=== PATIENT | male | born 1950 | race Caucasian/White ===

== ENCOUNTER 2019-04-08 08:43 | Day surgery (SDC) | payer MEDICARE, BC ==
--- NOTE | 2019-04-08 05:45 | History and Physical - [place] ---
CHIEF COMPLAINT/HISTORY OF CHIEF COMPLAINT: This patient presents with a history of an intractable post lumbar laminectomy syndrome. Due to the failure of therapies, a spinal cord stimulator trial was conducted on 03/07/19 with 75% pain control. Due to the failure of therapy and the success of the trial, he is here for implantation of a permanent system. PAST MEDICAL HISTORY: Chronic obstructive pulmonary disease, asthmatic bronchitis, hypertension, bladder dysfunction, diverticular disease, depression, and difficulty sleeping. PAST SURGICAL HISTORY: Multiple orthopedic surgeries. MEDICATIONS ON ADMISSION: List to be provided. ALLERGIES: None given. FAMILY/PSYCHOSOCIAL HISTORY: Social history - Smoking and caffeine. Family history - Coronary artery disease, hypertension, and cancer. SYSTEMS REVIEW: The patient is appropriate in no acute distress. The remainder of the systems review is positive for glasses, breathing difficulties, and degenerative arthritis. PHYSICAL EXAMINATION: Height is 5'10", weight is 230. No vitals. HEENT: Within normal limits. LUNGS: Lung sounds coarse and bronchitic. HEART: Rapid. MUSCULOSKELETAL: Primary pain pattern low back with a bilateral lower extremity extension. Mild motor and sensory abnormalities in both legs. Assistive device required for ambulation. NEUROLOGIC: Cranial nerves are intact. IMPRESSION: POST LUMBAR LAMINECTOMY SYNDROME, ICD-10 CODE M96.1 WITH LUMBAR RADICULOPATHY, ICD-10 CODE M54.16 AND M54.17. PLAN: The patient is here for implantation of a permanent spinal cord stimulator after the failure of therapy and the success of the trial. The procedure will be considered outpatient although an overnight stay will be evaluated. JOB NUMBER: [id number] MTDD
[2019-04-08] MEDS ORDERED: LIDOCAINE 2% MDV (20MG/ML) 20ML VIAL IV ONE (08:44)
[2019-04-08] MEDS ORDERED: MIDAZOLAM HCL 2MG/2ML VIAL IV ONE (08:44)
[2019-04-08] MEDS ORDERED: PROPOFOL 10 MG/ML VIAL IV ONE (08:44)
[2019-04-08] MEDS ORDERED: FENTANYL PF 100MCG/2ML VIAL IV ONE (08:44)
[2019-04-08] MEDS ORDERED: CEFAZOLIN 1G VIAL IVP ONE (08:44)
[2019-04-08] MEDS ORDERED: 0.9 % SODIUM CHLORIDE 10 ML VIAL IVP ONE (08:44)
[2019-04-08] MEDS: RINGERS SOLUTION,LACTATED 1,000 ML IV ONE ×2 (09:30→12:06)
[2019-04-08] MEDS: METOCLOPRAMIDE 10 MG TABLET PO ONE (09:33)
[2019-04-08] MEDS: FAMOTIDINE 20MG TABLET PO ONE (09:33)
[2019-04-08] MEDS: MECLIZINE 25 MG TABLET PO ONE (09:33)
[2019-04-08] MEDS: ACETAMINOPHEN 1,000 MG/100 ML BTL IVPB ONE (09:33)
[2019-04-08] MEDS: CEFAZOLIN 2 Gram 2 GM/50 ML BAG IVPB ONE (11:10)
[2019-04-08] MEDS: LIDOCAINE 1% W/EPI 1:100,000 MDV 20 ML VIAL SQ ONE (12:10)
[2019-04-08] MEDS: BUPIVACAINE 0.5% W/EPI MPF 30 ML VIAL SQ ONE (12:10)
--- NOTE | 2019-04-09 20:48 | RADIOLOGY REPORT ---
EXAM: SPINE, 1 VIEW HISTORY: SPINAL CORD STIMULATOR IMPLANT. TECHNIQUE: Single AP supine view of the lower two-thirds of the thoracic and entire lumbar spine obtained. COMPARISON: Intraoperative radiographs dated 04/08/2019. FINDINGS: A dual-lead intraspinal stimulator is in place. This appears to enter the spinal canal near the thoracolumbar junction. Lead tips are at the T5-T6 level. The extraspinal portions of the leads extend rightward to the right flank region, where there is connection to a stimulator generator. There are degenerative changes scattered throughout the visualized spine, mild to moderate in degree, associated with levoconvex lumbar scoliosis. No lytic or blastic bone lesion. IMPRESSION: DUAL-LEAD INTRASPINAL STIMULATOR IN PLACE, DETAILED ABOVE. JOB NUMBER: [id number] MTDD
--- NOTE | 2019-04-10 15:01 | Operative Note ---
DATE OF SURGERY: 04/08/2019 PREOPERATIVE DIAGNOSIS: Post lumbar laminectomy syndrome, ICD10 code M96.1 with radiculopathy, ICD10 code M54.16 and M54.17. OPERATION: 1. Fluoroscopic-guided epidural access left T1-12, placement of spinal cord stimulator lead 1 [employer] Infinion 16, 6 electrodes positioned left T7. 2. Fluoroscopic-guided epidural access left T12-L1, placement of spinal cord stimulator lead 2 [employer] Infinion 16, 6 electrodes positioned right T7. 3. Complex programming of lead 1 over 20 minutes followed by complex programming of lead 2 over 20 minutes. 4. Incision, subcutaneous dissection, and anchoring of lead 1 and lead 2 to supraspinous fascia with a [employer] locking anchor. 5. Incision, subcutaneous dissection, and creation of subcutaneous pouch at right flank at site picked by patient for generator, [employer] programmable rechargeable WaveWriter. 6. Tunneling between lead pouch and generator pouch, placement of external portion of each lead into generator pouch, each lead interfaced with generator. 7. Dermabond closure approximating each wound. 8. Complex programming internal generator home use 2 stimulators 20 minutes. ANESTHESIA: Sedation with intravenous medication. ANESTHESIA PROVIDER: Kody Brown INDICATION: This patient presents with a history of intractable lumbar radiculopathy post laminectomy in source. Due to the failure of therapy, a spinal cord stimulator trial was conducted with 75% to 85% pain control. Due to the failure of all therapies and the success of the stimulator trial, the patient presents for implantation of a permanent system. PROCEDURE: Intravenous line, vital sign monitoring, IV sedation. Patient positioned prone. Sterile prep, sterile technique. Imaging for guidance. Local for infiltration. From the left, the epidural interspace at 11-12 and 12-1 were both marked, infiltrated with local. Then using 2 separate curved access Epimed needles with loss of resistance, the space was accessed. At 11-12, spinal cord stimulator lead 1, a [employer] Infinion 16, 6 electrodes positioned left of the midline T7. With the access at 12-1, same technique, spinal cord stimulator lead 2, [employer] Infinion 16, 6 electrodes positioned right at T7. Each access was atraumatic. No blood, no CSF. Each lead was navigated to T7 successfully. With the patient awake, complex programming of each lead over 20 minutes performed establishing stimulation pain control to all the appropriate areas. He was given the option to implant and continue to program or remove. He opted to implant. The question was repeated with the same response. The skin above and below each needle was infiltrated. Incision was made and subcutaneous dissection was conducted to supraspinous fascia. Each of the leads was then anchored to the supraspinous fascia with a [employer] locking anchor and nonabsorbable suture. At the right flank, a site picked by the patient for the generator, skin infiltrated, incision made, and subcutaneous dissection was conducted to form a pouch of suitable size and depth for the generator. Antibiotic irrigation and Bovie for hemostasis at both sites. A tunneling tool was used to carry the leads in the generator pouch, and then each lead was interfaced to the generator. The generator and its connections to the leads were placed into the pouch. The leads were placed into their own pouch, and then both incisions were closed using Stratafix suture, 2-0 fascia, and 3-0 skin. Dermabond closure was used to approximate the edges of both wounds. He was transported to the recovery room stable. There were no side effects from the procedure or sedation. He had full functionality of extremities. When awake and alert in the recovery room, complex programming of the 2 leads and the internal generator performed over 20 minutes reestablishing stimulation and pain control to all the appropriate areas. He was instructed on use of the system, provided with information on error messaging, and then prepared for discharge. DISCHARGE INSTRUCTIONS: 1. The sites to remain clean and dry although the Dermabond will allow showering. No sitting in water. 2. Standard medications resumed including the antibiotic Levaquin 500 mg once a day for 14 days. 3. The office will contact the patient in 12-14 days to set up a time in 7-10 days for us to look at the sites. Until then, he is to keep his activities controlled. All other instructions were provided with numbers to contact if problems given. He will be discharged by his request. TAYLA
== END 2019-04-08 13:25 | disposition home or self-care (01) ==
LOC: SUR 08:43
PROVIDERS: ATTEND Pain Medicine Interventional Pain Medicine
DX: M96.1 Postlaminectomy syndrome, not elsewhere classified (principal); M54.16 Radiculopathy, lumbar region; M54.17 Radiculopathy, lumbosacral region; I10 Essential (primary) hypertension; D72.829 Elevated white blood cell count, unspecified; J44.9 Chronic obstructive pulmonary disease, unspecified; G47.33 Obstructive sleep apnea (adult) (pediatric); F17.210 Nicotine dependence, cigarettes, uncomplicated; Z86.711 Personal history of pulmonary embolism
CPT/HCPCS: 72020; 95972; C1820; C1883; J0690; J7120